=== PATIENT | male | born 1935 | race Caucasian/White ===

== ENCOUNTER → 2017-04-11 08:09 | Outpatient (CLI) | payer OTHER ==
[~2017-04-11 08:09] MED LIST: LIPITOR20 MG PO; TOPROL XL25 M1 PO
== END | disposition home or self-care (01) ==
LOC: LAB 08:09
DX: E11.9 Type 2 diabetes mellitus without complications (principal); C61 Malignant neoplasm of prostate

== ENCOUNTER 2017-04-16 11:54 | Outpatient (CLI) | payer OTHER | END 2017-04-16 11:55 | disposition home or self-care (01) | LOC: LAB 11:54 | DX: N39.0 Urinary tract infection, site not specified (principal) ==

== ENCOUNTER 2017-05-19 07:41 | Outpatient (CLI) | payer OTHER | END 2017-05-19 07:59 | disposition home or self-care (01) | LOC: LAB 07:41 | DX: E11.9 Type 2 diabetes mellitus without complications (principal); N41.9 Inflammatory disease of prostate, unspecified; R70.0 Elevated erythrocyte sedimentation rate ==

== ENCOUNTER 2017-05-19 08:01 | Outpatient (CLI) | payer OTHER | END 2017-05-19 08:13 | disposition home or self-care (01) | LOC: RAD 08:01 | DX: M79.1 Myalgia (principal); M47.819 Spondylosis without myelopathy or radiculopathy, site unspecified ==

== ENCOUNTER 2017-08-12 13:43 | Outpatient (CLI) | payer OTHER | END 2017-08-12 13:53 | disposition home or self-care (01) | LOC: NUCLEAR 13:43 | DX: I87.2 Venous insufficiency (chronic) (peripheral) (principal) ==

== ENCOUNTER → 2017-08-20 07:38 | Outpatient (CLI) | payer OTHER | END | disposition home or self-care (01) | LOC: LAB 07:38 | DX: E11.9 Type 2 diabetes mellitus without complications (principal); E78.4 Other hyperlipidemia ==

== ENCOUNTER 2017-08-20 08:33 | Outpatient (CLI) | payer OTHER | END 2017-08-20 08:44 | disposition home or self-care (01) | LOC: SONOGRAMA 08:33 | DX: M65.4 Radial styloid tenosynovitis [de Quervain] (principal) ==

== ENCOUNTER → 2017-09-24 07:56 | Outpatient (CLI) | payer OTHER | END | disposition home or self-care (01) | LOC: LAB 07:56 | DX: C61 Malignant neoplasm of prostate (principal) ==

== ENCOUNTER 2017-10-08 09:23 | Outpatient (CLI) | payer OTHER | END 2017-10-08 09:29 | disposition home or self-care (01) | LOC: RAD 09:23 | DX: M17.0 Bilateral primary osteoarthritis of knee (principal) ==

== ENCOUNTER 2017-10-20 07:33 | Outpatient (CLI) | payer OTHER | END 2017-10-20 07:43 | disposition home or self-care (01) | LOC: LAB 07:33 | DX: N30.90 Cystitis, unspecified without hematuria (principal); D64.89 Other specified anemias ==

== ENCOUNTER 2017-10-31 08:11 | Outpatient (CLI) | payer OTHER | END 2017-10-31 08:18 | disposition home or self-care (01) | LOC: LAB 08:11 | DX: N39.0 Urinary tract infection, site not specified (principal) ==

== ENCOUNTER 2018-01-02 08:24 | Outpatient (CLI) | payer OTHER | END 2018-01-02 08:57 | disposition home or self-care (01) | LOC: LAB 08:24 | DX: N41.8 Other inflammatory diseases of prostate (principal); E78.49 Other hyperlipidemia; E11.9 Type 2 diabetes mellitus without complications; I10 Essential (primary) hypertension; D64.89 Other specified anemias ==

== ENCOUNTER 2018-01-29 09:01 | Outpatient (CLI) | payer OTHER | END 2018-01-29 09:08 | disposition home or self-care (01) | LOC: LAB 09:01 | DX: C61 Malignant neoplasm of prostate (principal) ==

== ENCOUNTER 2018-03-27 08:30 | Outpatient (CLI) | payer OTHER | END 2018-03-27 10:21 | disposition home or self-care (01) | LOC: LAB 08:30 | DX: C61 Malignant neoplasm of prostate (principal) ==

== ENCOUNTER 2018-05-05 07:24 | Outpatient (CLI) | payer OTHER | END 2018-05-05 13:21 | disposition HB | LOC: LAB 07:24 | DX: M06.4 Inflammatory polyarthropathy (principal); E55.9 Vitamin D deficiency, unspecified; E03.8 Other specified hypothyroidism; N41.9 Inflammatory disease of prostate, unspecified; N30.90 Cystitis, unspecified without hematuria; E11.9 Type 2 diabetes mellitus without complications; E78.49 Other hyperlipidemia ==

== ENCOUNTER 2018-05-08 07:59 | Outpatient (CLI) | payer OTHER | END 2018-05-08 08:05 | disposition home or self-care (01) | LOC: LAB 07:59 | DX: D64.89 Other specified anemias (principal); I10 Essential (primary) hypertension; R73.01 Impaired fasting glucose; E03.8 Other specified hypothyroidism; E78.49 Other hyperlipidemia ==

== ENCOUNTER 2018-06-12 08:33 | Outpatient (CLI) | payer OTHER | END 2018-06-12 08:40 | disposition home or self-care (01) | LOC: LAB 08:33 | DX: R42 Dizziness and giddiness (principal); N40.0 Benign prostatic hyperplasia without lower urinary tract symptoms; E78.00 Pure hypercholesterolemia, unspecified; N39.0 Urinary tract infection, site not specified ==

== ENCOUNTER 2018-06-23 07:40 | Outpatient (CLI) | payer OTHER | END 2018-06-23 07:45 | disposition home or self-care (01) | LOC: LAB 07:40 | DX: N39.0 Urinary tract infection, site not specified (principal) ==

== ENCOUNTER 2018-09-04 09:02 | Outpatient (CLI) | payer OTHER | END 2018-09-04 09:09 | disposition home or self-care (01) | LOC: LAB 09:02 | DX: E78.49 Other hyperlipidemia (principal); I10 Essential (primary) hypertension ==

== ENCOUNTER 2018-09-22 07:36 | Outpatient (CLI) | payer OTHER | END 2018-09-22 07:40 | disposition home or self-care (01) | LOC: LAB 07:36 | DX: C61 Malignant neoplasm of prostate (principal) ==

== ENCOUNTER 2018-10-14 08:35 | Outpatient (CLI) | payer OTHER | END 2018-10-14 08:43 | disposition home or self-care (01) | LOC: LAB 08:35 | DX: M17.0 Bilateral primary osteoarthritis of knee (principal); M06.4 Inflammatory polyarthropathy; E55.9 Vitamin D deficiency, unspecified; B20 Human immunodeficiency virus [HIV] disease; Z11.4 Encounter for screening for human immunodeficiency virus [HIV] ==

== ENCOUNTER 2019-02-10 07:13 | Outpatient (CLI) | payer OTHER | END 2019-02-10 07:21 | disposition home or self-care (01) | LOC: LAB 07:13 | DX: M06.4 Inflammatory polyarthropathy (principal); E11.9 Type 2 diabetes mellitus without complications; I10 Essential (primary) hypertension; N41.8 Other inflammatory diseases of prostate; N30.90 Cystitis, unspecified without hematuria ==

== ENCOUNTER 2019-08-05 12:06 | Outpatient (CLI) | payer OTHER | END 2019-08-05 12:20 | disposition home or self-care (01) | LOC: LAB 12:06 | PROVIDERS: ATTEND Internal Medicine | DX: E78.00 Pure hypercholesterolemia, unspecified (principal); R42 Dizziness and giddiness ==

== ENCOUNTER → 2020-01-27 06:55 | Outpatient (CLI) | payer OTHER | END | disposition home or self-care (01) | LOC: LAB 06:55 | PROVIDERS: ATTEND Urology | DX: C61 Malignant neoplasm of prostate (principal) ==

== ENCOUNTER → 2020-03-10 08:41 | Outpatient (CLI) | payer OTHER | END | disposition home or self-care (01) | LOC: LAB 08:41 | PROVIDERS: ATTEND Internal Medicine | DX: E55.9 Vitamin D deficiency, unspecified (principal); E78.00 Pure hypercholesterolemia, unspecified; E42 Marasmic kwashiorkor ==

== ENCOUNTER 2020-06-06 08:49 | Outpatient (CLI) | payer OTHER | END 2020-06-06 09:23 | disposition home or self-care (01) | LOC: SONOGRAMA 08:49 | PROVIDERS: ATTEND Internal Medicine | DX: M19.041 Primary osteoarthritis, right hand (principal); M19.012 Primary osteoarthritis, left shoulder; M75.52 Bursitis of left shoulder ==

== ENCOUNTER 2020-10-12 08:17 | Outpatient (CLI) | payer OTHER | END 2020-10-12 08:19 | disposition home or self-care (01) | LOC: LAB 08:17 | PROVIDERS: ATTEND Internal Medicine | DX: E78.00 Pure hypercholesterolemia, unspecified (principal); R42 Dizziness and giddiness; N40.0 Benign prostatic hyperplasia without lower urinary tract symptoms; N39.0 Urinary tract infection, site not specified; M25.562 Pain in left knee ==

== ENCOUNTER 2021-03-19 11:17 | Outpatient (CLI) | payer OTHER | END 2021-03-19 13:13 | disposition home or self-care (01) | LOC: MRI 11:17 | PROVIDERS: ATTEND Internal Medicine | DX: M48.061 Spinal stenosis, lumbar region without neurogenic claudication (principal) | CPT/HCPCS: 72148 ==

== ENCOUNTER 2021-03-30 08:01 | Outpatient (CLI) | payer OTHER | END 2021-03-30 08:07 | disposition home or self-care (01) | LOC: LAB 08:01 | PROVIDERS: ATTEND Urology | DX: D64.89 Other specified anemias (principal); N39.0 Urinary tract infection, site not specified; C61 Malignant neoplasm of prostate; E78.00 Pure hypercholesterolemia, unspecified; E03.8 Other specified hypothyroidism; I10 Essential (primary) hypertension; R73.09 Other abnormal glucose ==

== ENCOUNTER → 2021-04-17 07:40 | Outpatient (CLI) | payer OTHER | END | disposition home or self-care (01) | LOC: NUCLEAR 07:40 | PROVIDERS: ATTEND Urology | DX: C61 Malignant neoplasm of prostate (principal) | CPT/HCPCS: 78306; 78802; A9503 ==

== ENCOUNTER 2021-04-24 07:53 | Outpatient (CLI) | payer OTHER | END 2021-04-24 08:09 | disposition home or self-care (01) | LOC: LAB 07:53 | DX: E03.8 Other specified hypothyroidism (principal); Z13.1 Encounter for screening for diabetes mellitus; I10 Essential (primary) hypertension; E78.5 Hyperlipidemia, unspecified; E55.9 Vitamin D deficiency, unspecified; M05.79 Rheumatoid arthritis with rheumatoid factor of multiple sites without organ or systems involvement; M06.4 Inflammatory polyarthropathy ==

== ENCOUNTER → 2021-05-01 12:44 | Outpatient (CLI) | payer OTHER | END | disposition home or self-care (01) | LOC: LAB 12:44 | PROVIDERS: ATTEND Internal Medicine | DX: N30.90 Cystitis, unspecified without hematuria (principal) ==

== ENCOUNTER 2021-08-20 10:22 | Outpatient (CLI) | payer OTHER | END 2021-08-20 10:23 | disposition home or self-care (01) | LOC: LAB 10:22 | PROVIDERS: ATTEND Internal Medicine Cardiovascular Disease | DX: E03.9 Hypothyroidism, unspecified (principal); E78.00 Pure hypercholesterolemia, unspecified; I10 Essential (primary) hypertension; R73.9 Hyperglycemia, unspecified; D64.9 Anemia, unspecified ==

== ENCOUNTER 2021-12-23 07:57 | Outpatient (CLI) | payer OTHER | END 2021-12-23 07:58 | disposition home or self-care (01) | LOC: LAB 07:57 | PROVIDERS: ATTEND Internal Medicine | DX: E78.00 Pure hypercholesterolemia, unspecified (principal); R42 Dizziness and giddiness ==

== ENCOUNTER → 2022-04-22 08:15 | Outpatient (CLI) | payer OTHER | END | disposition home or self-care (01) | LOC: LAB 08:15 | PROVIDERS: ATTEND Internal Medicine Cardiovascular Disease | DX: E78.6 Lipoprotein deficiency (principal); D64.9 Anemia, unspecified; I10 Essential (primary) hypertension; R73.01 Impaired fasting glucose; E03.9 Hypothyroidism, unspecified ==

== ENCOUNTER 2022-07-22 07:25 | Outpatient (CLI) | payer OTHER | END 2022-07-22 07:33 | disposition home or self-care (01) | LOC: LAB 07:25 | DX: D68.9 Coagulation defect, unspecified (principal); C61 Malignant neoplasm of prostate; N40.0 Benign prostatic hyperplasia without lower urinary tract symptoms ==

== ENCOUNTER 2022-11-10 11:11 | Emergency (ER) | payer OTHER ==
[~2022-11-10] VITALS: Ht 162.6 cm; Wt 69.9 kg
== END 2022-11-10 14:37 | disposition left against medical advice (07) ==
LOC: ER 11:11
DX: Z53.21 Procedure and treatment not carried out due to patient leaving prior to being seen by health care provider (principal)

== ENCOUNTER 2023-01-01 09:19 | Outpatient (CLI) | payer OTHER ==
[2023-01-01 11:15] LABS: PH,URINE 5.5 (5.0-8.0); URINE APPEARANCE Clear; URINE BILIRRUBIN Negative (NEGATIVE); URINE BLOOD Negative; URINE COLOR Yellow; URINE GLUCOSE Negative (NEGATIVE); URINE LEUKOCYTE Negative; URINE NITRATE Negative; URINE PROTEIN Negative (NEGATIVE); URINE UROBILINOGEN 0.2 E.U./dl
[2023-01-01 11:18] LABS: URINE RBC 3.1 uL (0.0-20.8)
[2023-01-01 11:20] LABS: URINE EPITHELIAL CELLS 0.3 uL (0.0-38.8); URINE WBC 0.3 uL (0.0-23.2)
[2023-01-01 11:39] LABS: HEMATOCRIT 37.9 % (39.0-48.0); HEMOGLOBIN 12.5 g/dL (13-16.00); MEAN CELL VOLUME 91.2 fL (80.0-100.00); MEAN CORPUSCULAR HGB CONC 32.9 g/dl (32.0-36.0); PLATELET COUNT 249 K/uL (150-450); RED BLOOD COUNT 4.16 M/uL (4.00-6.00); RED CELL DISTRIBUTION WIDTH 14.4 % (11.5-14.5)
[2023-01-01 12:08] LABS: ALBUMIN 3.4 gm/dL (3.4-5.0); BILIRUBIN TOTAL 0.5 mg/dL (0.3-1.2); CALCIUM 9.1 mg/dL (8.5-10.1); CHOL HDL RATIO 2.2 (0-5.0); CREATININE SERUM 0.87 mg/dL (0.70-1.30); GFR 83.01; GLOBULINA 3.4 G/DL (2.4-3.5); POTASSIUM 4.86 mEq/L (3.5-5.1); TOTAL PROTEIN 6.8 gm/dL (6.4-8.2); TSH 1.44 uIU/mL (0.358-3.74)
[2023-01-01 12:47] LABS: VITAMIN D3 25 HYDROXY 43.23 ng/ml (30-120)
== END 2023-01-01 09:21 | disposition home or self-care (01) ==
LOC: LAB 09:19
DX: I10 Essential (primary) hypertension (principal); E03.8 Other specified hypothyroidism; E78.5 Hyperlipidemia, unspecified; D61.3 Idiopathic aplastic anemia; E55.9 Vitamin D deficiency, unspecified; M06.4 Inflammatory polyarthropathy; E11.00 Type 2 diabetes mellitus with hyperosmolarity without nonketotic hyperglycemic-hyperosmolar coma (NKHHC)

== ENCOUNTER 2023-06-11 10:09 | Outpatient (CLI) | payer OTHER ==
[~2023-06-11 10:09] MED LIST changes: +DULCOLAX STOOL100 M1 PO
[2023-06-11 11:34] LABS: PH,URINE 5.5 (5.0-8.0); URINE APPEARANCE Clear; URINE BILIRRUBIN Negative (NEGATIVE); URINE BLOOD Negative; URINE COLOR Yellow; URINE GLUCOSE Negative (NEGATIVE); URINE LEUKOCYTE Negative; URINE NITRATE Negative; URINE PROTEIN Negative (NEGATIVE); URINE UROBILINOGEN 0.2 E.U./dl
[2023-06-11 11:35] LABS: URINE BACTERIA 6.2 uL (0.0-1933); URINE RBC 4.8 uL (0.0-20.8)
[2023-06-11 11:36] LABS: URINE EPITHELIAL CELLS 1.2 uL (0.0-38.8); URINE WBC 0.6 uL (0.0-23.2)
== END 2023-06-11 13:24 | disposition home or self-care (01) ==
LOC: LAB 10:09
DX: C61 Malignant neoplasm of prostate (principal)

== ENCOUNTER → 2023-09-09 10:10 | Outpatient (CLI) | payer OTHER ==
[2023-09-09 10:44] LABS: HEMATOCRIT 37.9 % (39.0-48.0); HEMOGLOBIN 12.7 g/dL (13-16.00); MEAN CELL VOLUME 89.4 fL (80.0-100.00); MEAN CORPUSCULAR HGB CONC 33.5 g/dl (32.0-36.0); PLATELET COUNT 214 K/uL (150-450); RED BLOOD COUNT 4.24 M/uL (4.00-6.00); RED CELL DISTRIBUTION WIDTH 13.5 % (11.5-14.5)
[2023-09-09 11:16] LABS: INR 1.02; PARTIAL THROMBOPLASTIN TIME 25.5 SECONDS (22.0-34.0); PROTHROMBIN TIME 10.7 SECONDS (9.0-11.5)
[2023-09-09 11:21] LABS: CALCIUM 9.2 mg/dL (8.5-10.1); CREATININE SERUM 0.87 mg/dL (0.70-1.30); GFR 82.81; POTASSIUM 4.33 mEq/L (3.5-5.1)
[2023-09-09 11:49] LABS: PH,URINE 5.5 (5.0-8.0); URINE APPEARANCE Clear; URINE BILIRRUBIN Negative (NEGATIVE); URINE BLOOD Negative; URINE COLOR Yellow; URINE GLUCOSE Negative (NEGATIVE); URINE LEUKOCYTE Negative; URINE NITRATE Negative; URINE PROTEIN Negative (NEGATIVE); URINE UROBILINOGEN 0.2 E.U./dl
[2023-09-09 11:52] LABS: URINE EPITHELIAL CELLS 1.9 uL (0.0-38.8); URINE RBC 6.4 uL (0.0-20.8)
[2023-09-09 11:54] LABS: URINE WBC 1.3 uL (0.0-23.2)
== END | disposition home or self-care (01) ==
LOC: LAB 10:10
DX: D68.9 Coagulation defect, unspecified (principal)

== ENCOUNTER → 2024-01-13 08:20 | Outpatient (CLI) | payer OTHER ==
[2024-01-13 08:52] LABS: HEMATOCRIT 38.9 % (39.0-48.0); HEMOGLOBIN 13.2 g/dL (13-16.00); MEAN CELL VOLUME 88.9 fL (80.0-100.00); MEAN CORPUSCULAR HGB CONC 33.8 g/dl (32.0-36.0); PLATELET COUNT 238 K/uL (150-450); RED BLOOD COUNT 4.38 M/uL (4.00-6.00); RED CELL DISTRIBUTION WIDTH 15.1 % (11.5-14.5)
[2024-01-13 10:08] LABS: ALBUMIN 3.5 gm/dL (3.4-5.0); BILIRUBIN TOTAL 0.47 mg/dL (0.3-1.2); CALCIUM 9.3 mg/dL (8.5-10.1); CHOL HDL RATIO 2.5 (0-5.0); CREATININE SERUM 0.97 mg/dL (0.70-1.30); GFR 73.04; GLOBULINA 3.7 G/DL (2.4-3.5); POTASSIUM 4.19 mEq/L (3.5-5.1); TOTAL PROTEIN 7.2 gm/dL (6.4-8.2)
== END | disposition home or self-care (01) ==
LOC: LAB 08:20
PROVIDERS: ATTEND Internal Medicine
DX: I11.9 Hypertensive heart disease without heart failure (principal); E78.00 Pure hypercholesterolemia, unspecified

== ENCOUNTER 2024-03-25 10:44 | Outpatient (CLI) | payer OTHER ==
[2024-03-25 12:30] LABS: URINE APPEARANCE Clear; URINE BILIRRUBIN Negative (NEGATIVE); URINE BLOOD Negative; URINE COLOR Yellow; URINE GLUCOSE Negative (NEGATIVE); URINE KETONE Negative (NEGATIVE); URINE LEUKOCYTE Negative; URINE NITRATE Negative; URINE PROTEIN Negative (NEGATIVE); URINE UROBILINOGEN 0.2 E.U./dl
[2024-03-25 12:31] LABS: URINE BACTERIA 6.1 uL (0.0-1933); URINE RBC 2.3 uL (0.0-20.8)
[2024-03-25 12:35] LABS: URINE CAST 0.14 uL (0.0-1.40); URINE EPITHELIAL CELLS 0.1 uL (0.0-38.8); URINE WBC 0.4 uL (0.0-23.2)
== END 2024-03-25 11:08 | disposition home or self-care (01) ==
LOC: LAB 10:44
PROVIDERS: ATTEND Urology
DX: N39.0 Urinary tract infection, site not specified (principal); C61 Malignant neoplasm of prostate

== ENCOUNTER 2024-07-11 08:04 | Outpatient (CLI) | payer OTHER ==
[2024-07-11 08:44] LABS: HEMATOCRIT 40.5 % (39.0-48.0); HEMOGLOBIN 13.2 g/dL (13-16.00); MEAN CELL VOLUME 88.5 fL (80.0-100.00); MEAN CORPUSCULAR HEMOGLOBIN 28.9 pg (27.00-32.0); MEAN CORPUSCULAR HGB CONC 32.6 g/dl (32.0-36.0); PLATELET COUNT 196 K/uL (150-450); RED BLOOD COUNT 4.57 M/uL (4.00-6.00); RED CELL DISTRIBUTION WIDTH 14.2 % (11.5-14.5)
[2024-07-11 09:26] LABS: ALBUMIN 3.7 gm/dL (3.4-5.0); BILIRUBIN TOTAL 0.72 mg/dL (0.3-1.2); CALCIUM 9.2 mg/dL (8.5-10.1); CHOL HDL RATIO 2.1 (0-5.0); CREATININE SERUM 1.06 mg/dL (0.70-1.30); GFR 65.78; GLOBULINA 3.4 G/DL (2.4-3.5); POTASSIUM 4.4 mEq/L (3.5-5.1); TOTAL PROTEIN 7.1 gm/dL (6.4-8.2)
== END 2024-07-11 08:05 | disposition home or self-care (01) ==
LOC: LAB 08:04
PROVIDERS: ATTEND Internal Medicine
DX: R42 Dizziness and giddiness (principal); E78.00 Pure hypercholesterolemia, unspecified; N40.0 Benign prostatic hyperplasia without lower urinary tract symptoms

== ENCOUNTER 2024-11-08 10:14 | Outpatient (CLI) | payer OTHER ==
[2024-11-08 11:29] LABS: URINE APPEARANCE Clear; URINE BILIRRUBIN Negative (NEGATIVE); URINE BLOOD Negative; URINE COLOR Yellow; URINE GLUCOSE Negative (NEGATIVE); URINE KETONE Negative (NEGATIVE); URINE LEUKOCYTE Negative; URINE NITRATE Negative; URINE PROTEIN Negative (NEGATIVE); URINE UROBILINOGEN 0.2 E.U./dl
[2024-11-08 11:34] LABS: URINE RBC 2.1 uL (0.0-20.8); URINE WBC 2.6 uL (0.0-23.2)
[2024-11-08 11:37] LABS: URINE BACTERIA 3.5 uL (0.0-1933); URINE CAST 0.00 uL (0.0-1.40); URINE EPITHELIAL CELLS 0.9 uL (0.0-38.8)
== END 2024-11-08 10:19 | disposition home or self-care (01) ==
LOC: LAB 10:14
DX: R97.20 Elevated prostate specific antigen [PSA] (principal); N39.0 Urinary tract infection, site not specified

== ENCOUNTER 2025-01-05 07:58 | Outpatient (CLI) | payer OTHER ==
[2025-01-05 08:38] LABS: BASO % 0.4 % (0.1-1.2); EOS # 0.14 (0.04-0.54); EOS % 1.2 % (0.7-7.0); LYMPH # 2.35 (1.18-3.74); LYMPH % 20.6 % (19.3-53.1); MEAN PLATELET VOLUME 9.20 fl (9.4-12.4); MONO # 0.85 (0.24-0.82); MONO % 7.4 % (4.7-12.5); NEUT # 7.99 (1.56-6.13); NEUT % 70.0 % (34.0-71.1); RED CELL DISTRIBUTION WIDTH 14.4 % (11.6-14.4)
[2025-01-05 09:40] LABS: BUN CREA RATIO 27.0 (7.0-25.0); CREATININE SERUM 0.99 mg/dL (0.70-1.30); GFR 71.18; GLUCOSE FASTING 105.0 mg/dL (65-100); OSMOLALITY SERUM 285.0 MOSM/KG (275-295)
== END 2025-01-05 08:02 | disposition home or self-care (01) ==
LOC: LAB 07:58
DX: R42 Dizziness and giddiness (principal); Z11.9 Encounter for screening for infectious and parasitic diseases, unspecified